=== PATIENT | female | born 1990 | race African-American/Black ===

== ENCOUNTER 2016-10-13 16:53 | Emergency (ER) | payer MEDICAID ==
[~2016-10-13] VITALS: Ht 167.6 cm; Wt 86.2 kg
[2016-10-13 16:58] VITALS: BP 182/80; PULSE 83; RESP 16; TEMP 96.5; O2SAT 97
--- NOTE | 2016-10-13 17:05 | NUR ---
Pt placed to ER bed 04.
--- NOTE | 2016-10-13 17:10 | NUR ---
Pt report received from CORNELIA Mooney. Pt c/o Left neck/shoulder pain since last night. Pt denies injury or trauma. Pt states that she took Tylenol, S[place], and [place] last night with no relief in symptoms. States that pain is worse today. Pt states she's concerned about taking more pain medications r/t her .
--- NOTE | 2016-10-13 17:15 | NUR ---
Dr. Ba at bedside to assess pt.
[2016-10-13] MEDS ORDERED: ONDANSETRON 4 MG ODT TAB PO ONE (17:30)
[2016-10-13] MEDS ORDERED: HYDROmorphone 2 MG/ML VIAL IM ONE (17:30)
--- NOTE | 2016-10-13 18:30 | NUR ---
Pt verbalizes improvement in pain. No needs verbalized at this time.
[2016-10-13 19:25] VITALS: BP 143/80; PULSE 83; RESP 16; TEMP 96.5; O2SAT 97
--- NOTE | 2016-10-13 19:27 | NUR ---
Patient given written and verbal discharge instructions and verbalizes understanding. ER MD discussed with patient the results and treatment provided. Given copies of tests performed in ER. Patient in stable condition. ID arm band removed. Patient educated on pain management and to follow up with PMD. Pain Scale 0/10. Opportunity for questions provided and answered.
== END 2016-10-13 19:27 | disposition home or self-care (01) ==
LOC: SED 16:53
DX: O26.891 Other specified pregnancy related conditions, first trimester (principal); M43.6 Torticollis; O16.1 Unspecified maternal hypertension, first trimester; Z3A.10 10 weeks gestation of pregnancy
CPT/HCPCS: 81025; 96372; 99283; J1170; Q0162

== ENCOUNTER 2017-03-10 13:07 | Emergency (ER) | payer MEDICAID ==
[~2017-03-10] VITALS: Ht 167.6 cm; Wt 98.0 kg
[2017-03-10 13:15] VITALS: BP_SYST 150
[2017-03-10 17:31] LABS: BILIRUBIN,URINE NEGATIVE (NEGATIVE); BLOOD, URINE NEGATIVE (NEGATIVE); CLARITY/URINE SL HAZY (CLEAR); COLOR,URINE YELLOW (YELLOW); GLUCOSE,URINE TRACE (NEGATIVE); KETONES,URINE NEGATIVE (NEGATIVE); LEUKOCYTE ESTERASE ,URINE NEGATIVE (NEGATIVE); NITRITE, URINE NEGATIVE (NEGATIVE); PH,URINE 6.5 (5.0-8.0); PROTEIN URINE NEGATIVE (NEGATIVE); UROBILINOGEN,URINE 0.2 (0.2-1.0)
[2017-03-10 17:38] LABS: RBC,URINE NONE SEEN /HPF (0-3); WBC,URINE 0-3 /HPF (0-3)
[2017-03-10 17:39] LABS: BACTERIA,URINE FEW /HPF (None Seen); MUCUS,URINE None Seen /LPF (None Seen)
[2017-03-10 17:42] LABS: BASOPHILS % (AUTO) 0.2 % (0.0-2.0); EOSINOPHILS # (AUTO) 0.1 K/uL (0.0-0.4); EOSINOPHILS % (AUTO) 1.3 % (0.0-4.0); HEMATOCRIT 34.9 % (36-48); HEMOGLOBIN 11.7 g/dL (12.0-16.0); LYMPHOCYTES # (AUTO) 2.4 K/uL (1.0-5.5); LYMPHOCYTES % (AUTO) 26.2 % (20.5-51.5); MEAN CORPUSCULAR HEMOGLOBIN 32 pg (27-31); MEAN CORPUSCULAR HGB CONC 34 % (32-36); MEAN CORPUSCULAR VOLUME 97 fL (79.0-98.0); MONOCYTES # (AUTO) 0.5 K/uL (0.0-1.0); MONOCYTES % (AUTO) 5.9 % (1.7-9.3); NEUTROPHILS # (AUTO) 6.2 K/uL (1.8-7.7); NEUTROPHILS % (AUTO) 66.4 % (40.0-70.0); PLATELET COUNT (AUTO) 195 K/uL (130-430); RED BLOOD CELL COUNT(AUTO) 3.62 MIL/uL (4.2-6.2); RED CELL DISTRIBUTION WIDTH 12.8 % (9.0-15.0); WHITE BLOOD COUNT (AUTO) 9.2 K/uL (4.8-10.8)
[2017-03-10 17:47] LABS: CALCIUM 8.3 mg/dL (8.4-11.0); CREATININE 0.7 mg/dL (0.55-1.30)
[2017-03-10 17:52] LABS: ALBUMIN 2.9 g/dL (3.4-4.8); TOTAL BILIRUBIN 0.2 mg/dL (0.0-1.0); TOTAL PROTEIN, SERUM 6.7 g/dL (6.4-8.3)
[2017-03-10] MEDS ORDERED: MORPHINE SULFATE 10 MG/ML VIAL IM ONE (19:15)
[2017-03-10 19:28] VITALS: BP_SYST 140
== END 2017-03-10 19:28 | disposition home or self-care (01) ==
LOC: SED 13:07
DX: O26.893 Other specified pregnancy related conditions, third trimester (principal); M79.651 Pain in right thigh; Z3A.31 31 weeks gestation of pregnancy
CPT/HCPCS: 36415; 80053; 81000; 85025; 93971; 96372; 99285; J2270